=== PATIENT | female | born 1990 | race Caucasian/White ===

== ENCOUNTER 2016-07-23 22:41 | Emergency (ER) | payer OTHER | END 2016-07-24 04:30 | disposition home or self-care (01) | LOC: ER1 22:41 | DX: S16.1XXA Strain of muscle, fascia and tendon at neck level, initial encounter (principal); V49.9XXA Car occupant (driver) (passenger) injured in unspecified traffic accident, initial encounter | CPT/HCPCS: 72040; 99284 ==